=== PATIENT | male | born 1960 | race Two or more races ===

== ENCOUNTER 2016-12-15 17:11 | Emergency (ER) | payer MEDICAID ==
[~2016-12-15] VITALS: Ht 177.8 cm; Wt 78.0 kg
[~2016-12-15 17:11] MED LIST: None at this time
[2016-12-15] MEDS ORDERED: ASPIRIN 81 MG TABLET CHEW PO ONE (18:30)
[2016-12-15] MEDS ORDERED: LORazepam 1MG TABLET PO ONE (18:30)
[2016-12-15 19:07] LABS: HEMOGLOBIN 14.7 g/dL (13.7-18.0)
[2016-12-15 19:15] LABS: BLOOD UREA NITROGEN 16 mg/dL (7-18)
[2016-12-15 19:22] LABS: IS PT STATUS REG ER OR PRE ER? YES
[2016-12-15 20:11] VITALS: BP 134/89
== END 2016-12-15 20:16 | disposition home or self-care (01) ==
LOC: ED 18:56
DX: R06.00 Dyspnea, unspecified (principal); F15.10 Other stimulant abuse, uncomplicated; F41.1 Generalized anxiety disorder; E87.0 Hyperosmolality and hypernatremia; J44.9 Chronic obstructive pulmonary disease, unspecified; I25.2 Old myocardial infarction
CPT/HCPCS: 36415; 71020; 80048; 82040; 84484; 85025; 93005; 99285

== ENCOUNTER 2018-10-10 12:14 | Emergency (ER) | payer MEDICAID ==
[~2018-10-10] VITALS: Ht 177.8 cm; Wt 96.0 kg
[2018-10-10 12:56] LABS: BASOPHILS # (AUTO) 0.05 x10^3/uL (0-0.1); BASOPHILS % (AUTO) 1 % (0-1); EOSINOPHILS # (AUTO) 0.23 x10^3/uL (0-0.4); EOSINOPHILS % (AUTO) 3 % (1-7); LYMPHOCYTES # (AUTO) 2.14 x10^3/uL (1-3.4); LYMPHOCYTES % (AUTO) 26 % (22-44); MD NO; MEAN CORPUSCULAR HEMOGLOBIN 31.5 pg (27.5-34.5); MEAN CORPUSCULAR HGB CONC 33.7 g/dL (33.2-36.2); MEAN CORPUSCULAR VOLUME 93.5 fL (81-97); MEAN PLATELET VOLUME 8.5 fL (7.4-10.4); MONOCYTES # (AUTO) 0.91 x10^3/uL (0.2-0.8); MONOCYTES % (AUTO) 11 % (2-9); NEUTROPHILS # (AUTO) 4.88 x10^3/uL (1.8-6.8); NEUTROPHILS % (AUTO) 59 % (42-75); PLATELET COUNT 287 x10^3/uL (130-400); RED BLOOD COUNT 5.03 x10^6/uL (4.38-5.82); RED CELL DISTRIBUTION WIDTH 13.5 % (9.4-14.8)
--- NOTE | 2018-10-10 13:03 | NUR ---
PT AMBULATED STEADILY TO ROOM WITH RN FROM [facility]. PT GRUNTING WITH RESPIRATIONS, RESPS SHALLOW AND APPEARS UNCOMFORTABLE WITH MOVEMENTS. PWD. PT REPORTS L RIB PAIN SP BEING PUSHED INTO TABLE THIS AM. +PAIN WITH PALPATION/DEEP BREATHING. DENIES PRODUCTIVE COUGH. NO FLAIL CHEST OR CREPITUS NOTED. SPO2 >90% ON RA. BP/SPO2 MONITOR IN PLACE.
[2018-10-10 13:05] LABS: ALBUMIN 4.1 g/dL (3.4-5.0); ANION GAP 3 mmol/L (5-15); CALCIUM 9.4 mg/dL (8.5-10.1); CHLORIDE 106 mmol/L (98-107); CREATININE 0.99 mg/dL (0.7-1.3)
--- NOTE | 2018-10-10 13:09 | NUR ---
UA COLLECTED AND SENT TO LAB
[2018-10-10 13:22] LABS: MICROSCOPIC NOT IND
[2018-10-10] MEDS ORDERED: OXYcodone/APAP 10/325MG TABLET ONE (13:25)
[2018-10-10 13:27] LABS: CULTURE INDICATED? NO
--- NOTE | 2018-10-10 13:27 | NUR ---
PT MEDICATED PER EMAR FOR PAIN
[2018-10-10] MEDS ORDERED: OXYcodone/APAP 10/325MG TABLET PO ONE (13:30)
--- NOTE | 2018-10-10 13:58 | NUR ---
PT APPEARS MORE COMFORTABLE WITH MEDICATIONS. RESTING QUIETLY ON GURNEY. TO CT AT THIS TIME WITH REBRANDER. SPO2 >90% ON RA.
--- NOTE | 2018-10-10 14:48 | NUR ---
CHART UP FOR RECHECK. PT REPORTS IMPROVEMENT IN PAIN, 4/10
--- NOTE | 2018-10-10 14:49 | NUR ---
[facility] report received from RN, Haritha. Pt resting on sharmila.
--- NOTE | 2018-10-10 15:28 | NUR ---
Pt ambulated to bathroom, no assistance required. Pt aware of plan to discharge.
[2018-10-10 15:37] VITALS: BP 116/78
--- NOTE | 2018-10-10 15:38 | NUR ---
Patient/Caregiver given discharge instructions and they have confirmed that they understand the instructions. Patient ambulatory with steady gait. Pt given [employer] voucher for safe discharge home.
== END 2018-10-10 15:39 | disposition home or self-care (01) ==
LOC: ED 15:10
DX: S30.1XXA Contusion of abdominal wall, initial encounter (principal); R07.81 Pleurodynia; F41.1 Generalized anxiety disorder; J44.9 Chronic obstructive pulmonary disease, unspecified; I25.2 Old myocardial infarction; W01.0XXA Fall on same level from slipping, tripping and stumbling without subsequent striking against object, initial encounter; Y93.89 Activity, other specified; Y92.410 Unspecified street and highway as the place of occurrence of the external cause; Y99.8 Other external cause status
CPT/HCPCS: 36415; 74176; 80048; 81003; 82040; 85025; 99284